=== PATIENT | female | born 1990 | race African-American/Black ===

== ENCOUNTER 2017-01-03 16:07 | Emergency (ER) | payer MEDICAID ==
[~2017-01-03] VITALS: Ht 160 cm; Wt 48.0 kg
[2017-01-03 16:14] VITALS: BP 125/66
== END 2017-01-03 20:20 | disposition left against medical advice (07) ==
LOC: ER 16:07
DX: M25.532 Pain in left wrist (principal); Z53.21 Procedure and treatment not carried out due to patient leaving prior to being seen by health care provider